=== PATIENT | female | born 1945 | race Caucasian/White ===

== ENCOUNTER → 2022-05-02 15:40 | Outpatient (BNVA) | payer MEDICARE, SELFPAY | PROVIDERS: PCP Family Medicine; Visit Provider Surgery | DX: Z01.818 Encounter for other preprocedural examination (principal) | CPT/HCPCS: 99202 ==

== ENCOUNTER 2022-07-01 06:54 | Day surgery (SDC) | payer MEDICARE, SELFPAY ==
[2022-06-16 13:16] VITALS: BMI 26.2
--- NOTE | 2022-06-29 12:05 | P.CONAN_ITS ---
Documented by User: Yessenia Roach NP 06/30/22 10:41 HPI - Anesthesia Eval Consult details Narrative: 77yo F for Colonoscopy Stable per cardiology eval 04/2022 [facility] Active Problems Active Problems: All Active Problems (Updated 06/16/22 @ 13:17 by Debbi Busch RN) Hypertension (Acute) History of Hodgkin's lymphoma (Acute) History of breast cancer (Acute) Heart valve disease (Acute) History of thyroid disease (Acute) Colon cancer screening (Acute) Past Medical History Medical History Arthritis Bilateral carotid artery stenosis Breast cancer Colon cancer screening COVID-19 vaccine series started Elevated cholesterol History of COVID-19 Hodgkins lymphoma Hot flashes, menopausal HTN (hypertension) Hypothyroid Macular degeneration Meningitis spinal Nonrheumatic aortic valve regurgitation Nonrheumatic mitral valve regurgitation Surgical History Surgical History H/O colonoscopy History of reconstruction of both breasts Hx of detached retina repair Hx of eye surgery Hx of left mastectomy Hx of splenectomy Social History Social History Are you a primary medicare nurse to a significant other at home: No Do you presently have visiting nurse or other home services: No Patient Tobacco Use Status: Never used Tobacco Use of substances other than those prescribed or required for medical reasons: No Have you been hit, kicked, punched, or otherwise hurt by someone within the past year? If so, by whom?: No Are you DNR?: No Advance Directives: No (states is ) Advance Directives Information Provided: Yes (will bring copy of HCP DOS) Advance Directives on File: No Recently lost weight without trying: No Eating poorly because of decreased appetite: No Nutrition Risks: Surgical patient >75years Poor oral hygiene: No Meds Allergies Allergy/AdvReac Type Severity Reaction Status Date / Time No Known Allergies Allergy Verified 05/02/22 15:47 Home Medications Medication Instructions Recorded Confirmed Last Taken Type aspirin 81 mg tablet,delayed 81 mg PO DAILY 05/02/22 06/16/22 Unknown History release (Adult Low Dose Aspirin) levothyroxine 200 mcg tablet 200 mcg PO DAILY 05/02/22 06/16/22 07/01/22 History lisinopril 20 1 tab PO DAILY 05/02/22 06/16/22 Unknown History mg-hydrochlorothiazide 25 mg tablet metoprolol succinate 100 mg 100 mg PO BEDTIME 05/02/22 06/16/22 Unknown History tablet,extended release 24 hr rosuvastatin 40 mg tablet 20 mg PO BEDTIME 05/02/22 06/16/22 Unknown History venlafaxine 37.5 mg 37.5 mg PO Q2D 05/02/22 06/16/22 Unknown History capsule,extended release 24 hr vit C 250 mg-vit E 90 mg-zinc 40 1 tab PO BID 06/16/22 06/16/22 Unknown History mg-copper 1 [id number] capsule (PreserVision AREDS-2) Exam Exam Date and Time: June 29, 2022 1205 Height,Weight and Vital Signs: Height 5 ft 1.5 in Weight 63.957 kg Narrative Narrative: EKG 04/2022 SR with 1st deg AV block ECHO 02/2022 EF 60-65% LA mildly dilated RA mildly dilated RV mildly enlarged with normal function Mild aortic, mitral, and tricuspid insufficiency Mod tricuspid insuffiency with PA pressures reaching 54mmHg CVP is normal No significant change dating back to 2017 Carotid US R ICA mild blockage (improved from 2020) L ICA 50-69% (stable from 2019) Assessment and Plan Assessment Anesthesia Assessment: Chart Reviewed Documented by User: Colleen Serrano MD 07/01/22 07:31 [facility] Past Medical History Medical History Arthritis Bilateral carotid artery stenosis Breast cancer Colon cancer screening COVID-19 vaccine series started Elevated cholesterol History of COVID-19 Hodgkins lymphoma Hot flashes, menopausal HTN (hypertension) Hypothyroid Macular degeneration Meningitis spinal Nonrheumatic aortic valve regurgitation Nonrheumatic mitral valve regurgitation Surgical History Surgical History H/O colonoscopy History of reconstruction of both breasts Hx of detached retina repair Hx of eye surgery Hx of left mastectomy Hx of splenectomy History of Problems with Anesthesia: No Social History Social History Are you a primary medicare nurse to a significant other at home: No Do you presently have visiting nurse or other home services: No Patient Tobacco Use Status: Never used Tobacco Use of substances other than those prescribed or required for medical reasons: No Have you been hit, kicked, punched, or otherwise hurt by someone within the past year? If so, by whom?: No Are you DNR?: No Advance Directives: No (states is ) Advance Directives Information Provided: Yes (will bring copy of HCP DOS) Advance Directives on File: No Recently lost weight without trying: No Eating poorly because of decreased appetite: No Nutrition Risks: Surgical patient >75years Poor oral hygiene: No Meds Allergies Allergy/AdvReac Type Severity Reaction Status Date / Time No Known Allergies Allergy Verified 05/02/22 15:47 Home Medications Medication Instructions Recorded Confirmed Last Taken Type aspirin 81 mg tablet,delayed 81 mg PO DAILY 05/02/22 06/16/22 Unknown History release (Adult Low Dose Aspirin) levothyroxine 200 mcg tablet 200 mcg PO DAILY 05/02/22 06/16/22 07/01/22 History lisinopril 20 1 tab PO DAILY 05/02/22 06/16/22 Unknown History mg-hydrochlorothiazide 25 mg tablet metoprolol succinate 100 mg 100 mg PO BEDTIME 05/02/22 06/16/22 Unknown History tablet,extended release 24 hr rosuvastatin 40 mg tablet 20 mg PO BEDTIME 05/02/22 06/16/22 Unknown History venlafaxine 37.5 mg 37.5 mg PO Q2D 05/02/22 06/16/22 Unknown History capsule,extended release 24 hr vit C 250 mg-vit E 90 mg-zinc 40 1 tab PO BID 06/16/22 06/16/22 Unknown History mg-copper 1 [id number] capsule (PreserVision AREDS-2) Exam Airway Mallampati Class: I TM Dist: >3cm Neck ROM: Full Loose/Missing/Broken Teeth: No Heart: RRR Lungs: CTA Assessment and Plan Assessment Anesthesia Assessment: Anesthesia Plan Discussed Final Anesthetic Review History of Problems with Anesthesia: No NPO: Yes ASA Class: III Final Preanesthetic Review: Meds/Allgs Chart Reviewed, Consent Obtained/Reviewed and Anes Risks/Benef Reviewed Patient Risk: Intermediate Procedure Risk: Low Anesthetic Plan Anesthetic Plan: MAC: Disposition: Standard PACU
[2022-07-01 07:10] VITALS: BP 150/63; PULSE 63; RESP 18; TEMP 36.9; O2SAT 100; BMI 26.0
--- NOTE | 2022-07-01 07:23 | MHC.SHP ---
Pre-Procedural Eval Section A Date of Service: 07/01/22 Section B Chief Complaint: screening Details of Present Illness: Screening colonoscopy, otherwise no GI complaints Relevant Social History: None Present Medications: see Short Stay Collaborative assessment Medical History: Significant History ( history of breast cancer, history of lymphoma, heart valve disease) Allergies: Allergies Allergy/AdvReac Type Severity Reaction Status Date / Time No Known Allergies Allergy Verified 05/02/22 15:47 Review of Systems Sugical H&P ROS: Negative: Constitution, Cardiovascular, Respiratory, Neurological, Psychiatric, Hem-Onc, Allergic/Immunologic, Gastrointestinal, Genitourinary, Musculoskeletal, Integumentary, Endocrine and Eyes/Ears/Nose/Throat Exam Surgical H&P Exam: Normal: HEENT, Normal: Heart, Normal: Lungs, Normal: Extremities, Normal: Abdomen, Normal: Skin and Normal: Neurological Plan Diagnosis/Plan: Unchanged I have reviewed the history and physical and performed a pertinent physical examination on my patient. No changes have occurred unless specified.
[2022-07-01] MEDS: Lactated Ringers 1,000 ML 100 ML IVCONT (07:30)
--- NOTE | 2022-07-01 08:06 | P.OP_ITS ---
Operative Note Operative Note Date of Service: 07/01/22 Narrative: Preop diagnosis: Colon cancer screening Postop diagnosis: normal colonoscopy findings Procedure: Colonoscopy Surgeon: Cezar Mcclain The patient is a 77-year-old female referred for screening colonoscopy. She d enied any significant GI complaints. Her last colonoscopy was 10 years ago. She understood the technique of the procedure as well as the risks, benefits, and alternatives. The patient was brought to the operating room and placed in left lateral decubitus position under monitored anesthesia care. A surgical time-out was done. A full digital rectal exam was done and this did not reveal any sign ificant anal lesions. The tip of the Olympus colonoscope was gently introduced through the anal orifice advanced with insufflation all the way to the cecum. The cecum was intubated. The cecum was identified by visualization of the ileocecal valve as well as the appendiceal orifice. The cecal mucosa was unremarkable. The scope was gradually withdrawn with careful examination of the entire colonic mucosa being done with scope withdrawal. The patient had good bowel prep so it was unlikely that any lesion may have been missed. The rectum was reached and there were no lesions seen. The anal canal was unremarkable. The scope was then withdrawn completely with desufflation . The patient tolerated procedure well. There were no immediate complications. She is 77 years old so this may be her last colonoscopy for screening.
[2022-07-01 08:10] VITALS: BP 70/34; PULSE 87; RESP 20; TEMP 36.1; O2SAT 97
[2022-07-01 08:15] VITALS: BP 72/34; PULSE 88; RESP 18; O2SAT 100
[2022-07-01 08:20] VITALS: BP 86/48; PULSE 90; RESP 18; O2SAT 100
[2022-07-01 08:25] VITALS: BP 105/57; PULSE 89; RESP 18; TEMP 36.4; O2SAT 98
[2022-07-01 08:40] VITALS: BP 115/61; PULSE 96; RESP 18; TEMP 36.5; O2SAT 96
== END 2022-07-01 09:17 | disposition home or self-care (01) ==
PROVIDERS: PCP Family Medicine; Visit Provider Surgery
PROC: 0DJD8ZZ Inspection of Lower Intestinal Tract, Via Natural or Artificial Opening Endoscopic (ICD-10-PCS; CPT 45378; principal; 2022-07-01 08:40)
DX: Z12.11 Encounter for screening for malignant neoplasm of colon (principal); I10 Essential (primary) hypertension; E03.9 Hypothyroidism, unspecified; I34.0 Nonrheumatic mitral (valve) insufficiency; I35.1 Nonrheumatic aortic (valve) insufficiency; Z85.3 Personal history of malignant neoplasm of breast; Z90.12 Acquired absence of left breast and nipple; Z92.21 Personal history of antineoplastic chemotherapy; Z79.82 Long term (current) use of aspirin; Z79.899 Other long term (current) drug therapy; Z85.71 Personal history of Hodgkin lymphoma; Z90.81 Acquired absence of spleen; Z92.3 Personal history of irradiation
CPT/HCPCS: G0121